=== PATIENT | male | born 1955 | race Caucasian/White ===

== ENCOUNTER → 2020-02-19 10:55 | Outpatient (BNVA) | payer SELFPAY | PROVIDERS: Visit Provider Nurse Practitioner Family | DX: M25.361 Other instability, right knee (principal) | CPT/HCPCS: 73562 ==

== ENCOUNTER → 2022-07-23 09:10 | Outpatient (BNVA) | payer MEDICARE, SELFPAY | PROVIDERS: Family Provider Family Medicine; PCP Nurse Practitioner Family; Referring Provider Nurse Practitioner Family; Visit Provider Specialist | DX: G56.02 Carpal tunnel syndrome, left upper limb (principal); G56.22 Lesion of ulnar nerve, left upper limb | CPT/HCPCS: 95908; 95910 ==

== ENCOUNTER 2022-07-26 07:38 | Day surgery (SDC) | payer MEDICARE, SELFPAY ==
[2022-07-24 09:26] VITALS: BMI 28.8
[2022-07-26 07:54] VITALS: BP 133/90; PULSE 102; RESP 18; TEMP 36.2; O2SAT 95
[2022-07-26] MEDS: sodium chloride 0.9% 1,000 ML 30 ML IV (08:02)
[2022-07-26 08:12] LABS: Glucose Point of Care 265 mg/dL (70-110)
--- NOTE | 2022-07-26 08:13 | ANES.PREANE2 ---
Pre-Anesthetic Assessment Height/Weight: Height 1.75 m Weight 88.451 kg Temp Pulse Resp BP Pulse Ox O2 Del Method 97.2 F L 102 H 18 133/90 95 07/26/22 07:54 07/26/22 07:54 07/26/22 07:54 07/26/22 07:54 07/26/22 07:54 07/26/22 07:54 Preop Diagnosis: screening Operation Date: 07/26/22 09:30 Proposed Procedures p Colonoscopy 23537,Z12.11(Not Applicable) - Manuelito Osei DO Last intake: Intake Last Liquid Date 07/25/22 Last Liquid Time 22:00 Last Solid Date 07/24/22 Last Solid Time 17:00 Exam alert and oriented x 3 Airway Submandibular: within normal limits Cervical ROM: within normal limits Mallampati: Class II Dentition: partials and full History/ROS No significant history except as noted Pulmonary None reported CV/HEM Hypertension None reported Hepatic None reported GI Gastroesophageal Reflux Disease Metabolic Diabetes Mellitus Musc/skel Lower Back Pain Neuropsych None reported Anesthetic Plan ASA status: 3 Anesthesia: Anesthesia Evaluation and MAC Risk of > 500 ml blood loss (7ml/kg in children): No Medications/Allergies Home Medications Medication Instructions Recorded Confirmed Last Taken Type aspirin 81 mg tablet,delayed 81 mg PO DAILY PRN Pain 07/02/22 07/24/22 07/23/22 History release dulaglutide 1.5 mg/0.5 mL 1 mg SUBCUT .once a week 07/02/22 07/24/22 07/23/22 History subcutaneous pen injector (Trulicity) gabapentin 100 mg capsule 100 mg PO DAILY 07/02/22 07/24/22 07/23/22 History glipizide 10 mg tablet 10 mg PO DAILY 07/02/22 07/24/22 07/23/22 History metformin 1,000 mg tablet 1,000 mg PO DAILY 07/02/22 07/24/22 07/23/22 History sitagliptin phosphate 100 mg 100 mg PO DAILY 07/02/22 07/24/22 07/23/22 History tablet (Januvia) lisinopril 5 mg tablet 5 mg PO DAILY 07/23/22 07/24/22 07/23/22 History Allergies Allergy/AdvReac Type Severity Reaction Status Date / Time No Known Allergies Allergy Verified 07/23/22 09:20 Current Medications Generic Name Dose Route Start Last Admin Trade Name Freq PRN Reason Stop Dose Admin Sodium Chloride 1,000 mls @ 30 mls/hr 07/26/22 08:00 07/26/22 08:02 Sodium Chloride 0.9% IV 07/27/22 07:59 30 mls/hr .Q24H ORIANA Administration PFSH Anesthesia Social History Smoking and tobacco status: former smoker Alcohol intake: never Adopted: No Lives independently: Yes Data Anesthesia Cardiac Studies: No Data to Display
--- NOTE | 2022-07-26 09:36 | PM.HP ---
Providers/Chief Complaint Primary Care Provider: Savanna Plunkett NP Chief Complaint: Z12.11 History of Present Illness Neftali Sadlaña is a 67 year old male who presents for a screening colonoscopy. He reports his last screening colonoscopy was 10 years ago and was within normal limits. He denies any family history of colon cancer, abdominal pain, diarrhea, constipation, hematochezia and/or melena. Review of Systems General: Reports: 10 or more systems reviewed and unremarkable except in HPI and below Medications/Allergies Home Medications Medication Instructions Recorded Confirmed Last Taken Type aspirin 81 mg tablet,delayed 81 mg PO DAILY PRN Pain 07/02/22 07/24/22 07/23/22 History release dulaglutide 1.5 mg/0.5 mL 1 mg SUBCUT .once a week 07/02/22 07/24/22 07/23/22 History subcutaneous pen injector (Trulicity) gabapentin 100 mg capsule 100 mg PO DAILY 07/02/22 07/24/22 07/23/22 History glipizide 10 mg tablet 10 mg PO DAILY 07/02/22 07/24/22 07/23/22 History metformin 1,000 mg tablet 1,000 mg PO DAILY 07/02/22 07/24/22 07/23/22 History sitagliptin phosphate 100 mg 100 mg PO DAILY 07/02/22 07/24/22 07/23/22 History tablet (Januvia) lisinopril 5 mg tablet 5 mg PO DAILY 07/23/22 07/24/22 07/23/22 History Allergies Allergy/AdvReac Type Severity Reaction Status Date / Time No Known Allergies Allergy Verified 07/23/22 09:20 PFSH Acute PFSH: Surgical History H/O partial resection of colon Social History Smoking and tobacco status: former smoker Alcohol intake: never Adopted: No Lives independently: Yes Vitals/I&O/Wt Last Vital Signs Temp 97.2 F L 07/26/22 07:54 Pulse 102 H 07/26/22 07:54 Resp 18 07/26/22 07:54 BP 133/90 07/26/22 07:54 Pulse Ox 95 07/26/22 07:54 O2 Del Method 07/26/22 07:54 Physical Exam Narrative: General : Patient is well developed , no acute distress, oriented x3 Head : Normal cephalic, a-traumatic. Ears : Pinnae and external canal are normal. Hearing is normal. Eyes : PERRLA, Sclera and injection are normal. No conjunctival discharge. Nose : Mucous membranes are without erythema. Throat : buccal mucosa is normal, gums are without significant recession or hypertrophy. Lungs : Equal chest rise bilaterally, no use of accessory muscles, trachea is midline. Cor : Rate and rhythm are normal. Abdomen : Soft, ND, NT, no g/r/m Extremities : No edema, no cyanosis or clubbing, dorsalis pedis pulses are present bilaterally, non-tender to palpation of calves. Upper extremities are normal bilaterally. Back : non-tender to palpation, no CVA tenderness. Neuro : CN II - XII intact, Upper and lower extremities have equal and full strength A&P Assessment and plan (1) Colon cancer screening: Plan Colonoscopy The risks and benefits of the procedure, including bleeding, infection, intestinal perforation requiring surgery, missed lesion were explained to the patient. The patient is understanding of the risks and wishes to proceed. Attestations Medical Necessity Statement*: Home Coding Level of Care Code Acute Code for Chg Fwd Diagnoses Colon cancer screening Z12.11
[2022-07-26 09:54] VITALS: BP 126/87; PULSE 96; RESP 16; TEMP 36.3; O2SAT 95
[2022-07-26 10:10] VITALS: BP 141/83; PULSE 88; RESP 18; O2SAT 95
--- NOTE | 2022-07-26 13:28 | ANE.PACU2 ---
Inpatient post-anesthesia follow up: Airway intact: Yes Vital signs: Temperature 97.4 F Pulse Rate 88 Respiratory Rate 18 Blood Pressure 141/83 Pulse Oximetry 95 Oxygen Delivery Me thod Room Air Oxygen Flow Rate Fraction of Inspir ed Oxygen Hydration adequate: Yes Nausea and vomiting: No Pain level: 1 Mental status: Baseline
== END 2022-07-26 10:30 | disposition home or self-care (01) ==
PROVIDERS: PCP Nurse Practitioner Family; Visit Provider Surgery
PROC: 0DJD8ZZ Inspection of Lower Intestinal Tract, Via Natural or Artificial Opening Endoscopic (ICD-10-PCS; CPT 45378; principal; 2022-07-26 09:30)
DX: Z12.11 Encounter for screening for malignant neoplasm of colon (principal); K57.30 Diverticulosis of large intestine without perforation or abscess without bleeding; Z79.82 Long term (current) use of aspirin; Z87.891 Personal history of nicotine dependence; I10 Essential (primary) hypertension; K21.9 Gastro-esophageal reflux disease without esophagitis; E11.9 Type 2 diabetes mellitus without complications
CPT/HCPCS: 36416; 82962; G0121; J2704; J7030

== ENCOUNTER → 2022-09-27 09:35 | Outpatient (BNVA) | payer MEDICARE, OTHER, SELFPAY | PROVIDERS: PCP Nurse Practitioner Family; Referring Provider Nurse Practitioner Family; Visit Provider Student in an Organized Health Care Education/Training Program | DX: G56.03 Carpal tunnel syndrome, bilateral upper limbs (principal); G56.22 Lesion of ulnar nerve, left upper limb | CPT/HCPCS: 99204 ==

== ENCOUNTER 2022-11-13 06:05 | Day surgery (SDC) | payer MEDICARE, OTHER, SELFPAY ==
[2022-11-07 14:37] VITALS: BMI 27.2
[2022-11-13] VITALS (7 sets, daily range): BP systolic 105–148; BP diastolic 66–90; PULSE 78–103; RESP 16–21; TEMP 36.1–36.4; O2SAT 92–97
[2022-11-13] MEDS: acetaminophen 1,000 MG/100 ML PIGGYBACK 400 MG IV (06:43)
[2022-11-13] MEDS: ketorolac 30 mg/mL INJ IVP (06:43)
[2022-11-13] MEDS: sodium chloride 0.9% 1,000 ML 30 ML IV (06:44)
[2022-11-13 06:45] LABS: Glucose Point of Care 141 mg/dL (70-110)
--- NOTE | 2022-11-13 07:00 | W.PM.OPSFHP ---
Same Day Surgery H&P Indication for Procedure/HPI DATE OF PROCEDURE: November 13, 2022 CHIEF COMPLAINT/INDICATIONFOR SURGICAL PROCEDURE: Tunnel syndrome, left cubital tunnel syndrome. Unchanged HPI since office visit on 09/27/2022. Patient here to proceed with surgery for left carpal tunnel and cubital tunnel release surgery. PREOP DIAGNOSIS: Left Carpal Tunnel syndrome, left cubital tunnel syndrome PLANNED PROCEDURE: Operation Date: 11/13/22 07:50 Proposed Procedures p Carpal Tunnel Release Left Hand:37579,75687,G56.0(Left) - Kip Ferrera DO s Cubital Tunnel Release left carpal tunnel release:26988,92910,G56.0(Left) - Kip Ferrera DO Medications/Allergies* Home Medications Medication Instructions Recorded Confirmed Type lisinopril 5 mg tablet 5 mg PO DAILY 02/19/20 11/07/22 History multivitamin (Multiple Vitamins 1 tab PO DAILY 02/19/20 11/07/22 History tablet) aspirin 81 mg tablet,delayed 81 mg PO DAILY PRN Pain 07/02/22 11/07/22 History release dulaglutide 1.5 mg/0.5 mL 1 mg SUBCUT .once a week 07/02/22 11/07/22 History subcutaneous pen injector (Trulicity) gabapentin 100 mg capsule 100 mg PO DAILY 07/02/22 11/07/22 History glipizide 10 mg tablet 10 mg PO DAILY 07/02/22 11/07/22 History metformin 1,000 mg tablet 1,000 mg PO DAILY 07/02/22 11/07/22 History sitagliptin phosphate 100 mg 100 mg PO DAILY 07/02/22 11/07/22 History tablet (Januvia) Allergies/Adverse Reactions Allergy/AdvReac Type Severity Reaction Status Date / Time No Known Allergies Allergy Verified 11/07/22 14:31 Current Medications: Generic Name Dose Route Start Last Admin Trade Name Freq PRN Reason Stop Dose Admin Sodium Chloride 1,000 mls @ 30 mls/hr 11/13/22 06:15 11/13/22 06:44 Sodium Chloride 0.9% IV 11/14/22 06:14 30 mls/hr .Q24H ORIANA Administration Pertinent History/Comorbid Conditions* Surgical History (Updated 07/26/22 @ 09:38 by Manuelito Osei DO) H/O partial resection of colon Social History Smoking and tobacco status: never smoked Alcohol intake: never Substance/Drug Use: never Adopted: No Lives independently: Yes Pertinent Exam Findings alert, oriented x 3, operative site marked and procedure specific exam findings Left upper extremity neg spurlings Neg tinels at shoulder bilateral pos tinel at elbow Positive elbow flex test Positive median nerve compression test pos tinels weakness and slight atrophy of the thenar muscle intrinsic weakness with minimal atrophy Recommendations Surgery/Procedure today Other Plans: Patient understands risk benefits complication alternatives with surgery at this point time he elects to proceed with a left carpal tunnel release and left cubital tunnel release surgery with possible ulnar nerve transposition. All questions answered at this time. Coding Level of Care Code Acute Code for Chg Fwd Diagnoses
[2022-11-13] MEDS: ceFAZolin 2,000 MG in sodium chloride 0.9% (plus) 50 ML 100 MG IV (08:01)
[2022-11-13] MEDS: lidocaine-epi 1% 20 mL INJ INJECTION (09:00)
--- NOTE | 2022-11-13 09:32 | PM.OP2 ---
Brief Operative Note Date of procedure: 11/13/22 Pre-op diagnosis: Left carpal tunnel syndrome, left cubital tunnel syndrome Post-op diagnosis: same Procedure Done: Left carpal tunnel release Left cubital tunnel release (ulnar nerve release at the elbow) Surgeon: Kip Ferrera Estimated blood loss (mL): 5 Complications: None Post-op Plan: Patient taken to PACU in stable condition recovering well. Pain controlled. Will receive appropriate discharge instructions as well as pain medication postoperatively. We will follow-up in the orthopedic office in 2 weeks. Patient understands and agrees with current plan. All questions answered. Condition: stable Disposition: same day Coding Level of Care Code Acute Code for Maxwellg Fwmaggie
--- NOTE | 2022-11-13 09:32 | PM.PACU ---
PACU note Narrative: Patient taken to PACU in stable condition recovering well pain controlled. Dressings are on in place clean dry and intact fingertips are warm well-perfused brisk capillary refill less than 2 seconds Exam: awake Disposition: discharged
--- NOTE | 2022-11-13 09:32 | PM.OP ---
Operative Report Date of procedure: November 13, 2022 Pre-op diagnosis: Preop Diagnosis Left Carpal Tunnel syndrome, left cubital tunnel syndrome Procedure: Procedure done: Left carpal tunnel release Left cubital tunnel tunnel release (ulnar nerve release at elbow) Surgeon: Kip Ferrera DO Estimated blood loss: 5 mL Tourniquet 20 minutes IV fluids: 800 mL Complications: None Findings: See operative report narrative Condition: stable Disposition: same day Brief History: Patient's been seen and worked up in the outpatient setting and findings consistent with preoperative diagnosis.? Patient has left carpal tunnel syndrome as well as left cubital tunnel syndrome which has been worked up in the outpatient setting has physical exam findings consistent with this as well as confirmatory nerve conduction/EMG nerve conduction study consistent with left carpal tunnel syndrome left cubital tunnel syndrome. As result through shared decision making agreed to proceed with left carpal tunnel and left cubital tunnel release we talked about treatment options as far as nonoperative and operative intervention.? Understands risk benefits complication alternatives surgical nonsurgical treatment options.? Understanding his risks he agrees to proceed with surgical intervention for left carpal tunnel release, left cubital tunnel release. Understanding these risks he agrees to proceed with surgery.? Consent obtained in office. Procedure: Patient seen evaluate in the preoperative holding area.? Consent was reviewed and signed with patient.? Correct extremity marked.? Patient seen evaluated by anesthesia department once cleared for surgery was then taken back to the operative suite placed in supine position all bony prominences well-padded patient properly secured to bed.? Left upper extremity placed onto a left armboard.? Nonsterile tourniquet applied left upper arm.? Patient then underwent anesthesia per the anesthesia department.? Patient's left upper extremity was then prepped and draped in standard orthopedic fashion.? Final timeout performed.? Patient received appropriate preoperative antibiotics. Esmarch was used exsanguinate the left upper extremity.? Tourniquet was insufflated to 250 mmHg. I started with the carpal tunnel release first.? I made a standard open carpal tunnel release starting with the distal most extent in the palm at the Starr's cardinal line and the incision line was made in line with the fourth ray and ended just distal to the wrist crease.? Sharp scalpel incision was made through skin and subcutaneous tissue I then utilizing self retainer then began to dissect with dissection scissors split longitudinally the palmar fascia.? Next I then utilizing my assistant football coach Gabrieledakailee retractors subsequently utilizing scalpel feathered through the palmaris brevis as well as through the transverse carpal ligament distally.? Once I encountered the floor of the transverse carpal ligament and entered into the carpal tunnel I then switched to dissection scissors.? Carefully released the distal extent of the transverse carpal ligament to the palmar fat.? Care was to protect the recurrent branch and not injured this during this part of the case.? Next I then placed a [place] underneath the transverse carpal ligament proximally to protect the nerve in the carpal tunnel contents.? And then I subsequently under loupe magnification utilize my dissection scissors to release the transverse carpal ligament into the antebrachial fascia under direct visualization with care to keep my scissors with a curved ulnarly away from the palmar cutaneous branch.? The transverse carpal was then completely decompressed proximally and a [place] was then placed both distally and proximally throughout the carpal tunnel and had complete decompression of the nerve.? The nerve did appear to have hourglass shape as it went through the carpal tunnel.? With significant irritation noted around the nerve.? No masses were noted within the contents of the carpal tunnel.? This completed the carpal tunnel release and then I subsequently irrigated the wound bed and placed a wet Ray-Perry into the incision for later closure. Next marked out the landmarks of the left elbow of the medial epicondyle and olecranon and made a curvilinear incision following the course of the ulnar nerve at the medial aspect of the elbow.? Sharp scalpel incision was made through skin and subcutaneous tissue.? Next I switched to Littler dissection scissors and spread in plane of the medial antebrachial cutaneous nerve branching which was protected throughout this part of the dissection.? Then I directly came down over the fascia and identified the 2 heads of the FCU fascia and split this right in the middle and subsequently identified my ulnar nerve distally.? This was then completely released distally under direct visualization and loupe magnification.? Once the nerve was then identified I then subsequently tracked this proximally and released this through Keene's ligament as well as complete decompression of the nerve proximally all the way past the intermuscular septum.? The nerve was completely released and decompressed the area of entrapment there was severely noted was at the Keene's ligament.? The nerve had noticeable scarring and irritation noted around the Keene's ligament.? This point time the nerve completely decompressed both proximally and distally.? Ulnar nerve neurolysis performed and completed both proximally and distally with dissection scissors.? I then took the elbow through range of motion and there was no instability or subluxating of the ulnar nerve.? This completed cubital tunnel release.? Next the wound bed was thoroughly irrigated.? Tourniquet was deflated.? Hemostasis was satisfactory at the cubital tunnel release surgery site. I then inspected the carpal tunnel incision and this was found to have satisfactory hemostasis and all this was maintained through bipolar electrocautery.? At this point time I sequentially closed cubital tunnel site with 3-0 Vicryl suture in a running horizontal mattress nylon stitch.? ? The carpal tunnel release surgery was then closed in standard interrupted mattress fashion.? Dressing was Xeroform 4 x 4's ABD Curlex soft roll and an Darrius wrap has a bulky soft dressing.?Patient was then awakened from anesthesia and taken to PACU in stable condition. Disposition: Patient taken to PACU in stable condition recovering well.? Patient will receive appropriate discharge instructions as well as pain medication postoperatively.? We will follow-up with me in the office in 2 weeks.? Patient understands agrees with current plan.? All questions answered.? He understands if any questions or concerns and contact the office for follow-up appointment..
--- NOTE | 2022-11-13 12:48 | ANES.PREANE2 ---
Pre-Anesthetic Assessment Height/Weight: Height 1.78 m Weight 86.183 kg Temp Pulse Resp BP Pulse Ox O2 Del Method 97 F L 78 16 121/82 94 Room Air 11/13/22 09:45 11/13/22 10:02 11/13/22 10:02 11/13/22 10:02 11/13/22 10:02 11/13/22 10:02 Preop Diagnosis: Left Carpal Tunnel syndrome, left cubital tunnel syndrome Operation Date: 11/13/22 07:50 Proposed Procedures p Carpal Tunnel Release Left Hand:41723,19113,G56.0(Left) - Kip Ferrera DO s Cubital Tunnel Release left carpal tunnel release:79054,54780,G56.0(Left) - Kip Ferrera DO Familial anesthetic complications: none Was Beta Christian taken within 24 hours: N/A Was Clonidine taken within 24 hours: N/A Last intake: Intake Last Liquid Date 11/12/22 Last Liquid Time 18:00 Last Solid Date 11/12/22 Last Solid Time 18:00 Social No alcohol and No tobacco Exam alert, oriented x 3, clear to auscultation bilaterally and regular rate & rhythm Airway Submandibular: within normal limits Cervical ROM: within normal limits Mallampati: Class II Dentition: partials CV/HEM Hypertension Metabolic Diabetes Mellitus Neuropsych Neuropathy Anesthetic Plan ASA status: 2 Anesthesia: General Medications/Allergies Home Medications Medication Instructions Recorded Confirmed Last Taken Type lisinopril 5 mg tablet 5 mg PO DAILY 02/19/20 11/07/22 11/12/22 History multivitamin (Multiple Vitamins 1 tab PO DAILY 02/19/20 11/07/22 11/12/22 History tablet) aspirin 81 mg tablet,delayed 81 mg PO DAILY PRN Pain 07/02/22 11/07/22 10/31/22 History release dulaglutide 1.5 mg/0.5 mL 1 mg SUBCUT .once a week 07/02/22 11/07/22 11/04/22 History subcutaneous pen injector (Trulicity) gabapentin 100 mg capsule 100 mg PO DAILY 07/02/22 11/07/22 11/10/22 History glipizide 10 mg tablet 10 mg PO DAILY 07/02/22 11/07/22 11/12/22 History metformin 1,000 mg tablet 1,000 mg PO DAILY 07/02/22 11/07/22 11/12/22 History sitagliptin phosphate 100 mg 100 mg PO DAILY 07/02/22 11/07/22 11/12/22 History tablet (Januvia) hydrocodone 5 mg-acetaminophen 325 1 tab PO Q6H PRN pain 7 days #28 11/13/22 Unknown Rx mg tablet tabs ondansetron 4 mg disintegrating 4 mg PO DAILY 5 days #5 tabs 11/13/22 Unknown Rx tablet Allergies Allergy/AdvReac Type Severity Reaction Status Date / Time No Known Allergies Allergy Verified 11/07/22 14:31 PFSH Anesthesia Surgical History H/O partial resection of colon Social History Smoking and tobacco status: never smoked Alcohol intake: never Substance/Drug Use: never Adopted: No Lives independently: Yes Data Anesthesia Cardiac Studies: No Data to Display
--- NOTE | 2022-11-13 17:46 | ANE.PACU2 ---
Inpatient post-anesthesia follow up: Airway intact: Yes Vital signs: Temperature 97 F Pulse Rate 78 Respiratory Rate 16 Blood Pressure 121/82 Pulse Oximetry 94 Oxygen Delivery Me thod Room Air Oxygen Flow Rate Fraction of Inspir ed Oxygen Hydration adequate: Yes Nausea and vomiting: No Pain level: 2 Mental status: Baseline
== END 2022-11-13 10:15 | disposition home or self-care (01) ==
PROVIDERS: PCP Nurse Practitioner Family; Visit Provider Student in an Organized Health Care Education/Training Program
PROC: (CPT 64721; principal; 2022-11-13 07:40)
PROC: (CPT 64718; 2022-11-13 07:40)
DX: G56.02 Carpal tunnel syndrome, left upper limb (principal); G56.22 Lesion of ulnar nerve, left upper limb; E11.40 Type 2 diabetes mellitus with diabetic neuropathy, unspecified; I10 Essential (primary) hypertension; Z79.84 Long term (current) use of oral hypoglycemic drugs
CPT/HCPCS: 64718; 64721; 36416; 82962; J0131; J0690; J1885; J2704; J2795; J3010; J7030

== ENCOUNTER → 2022-11-26 08:22 | Outpatient (BNVA) | payer MEDICARE, OTHER, SELFPAY | PROVIDERS: PCP Nurse Practitioner Family; Visit Provider Student in an Organized Health Care Education/Training Program | DX: G56.22 Lesion of ulnar nerve, left upper limb (principal); G56.02 Carpal tunnel syndrome, left upper limb | CPT/HCPCS: 99024 ==

== ENCOUNTER → 2022-11-30 10:23 | Outpatient (BNVA) | payer MEDICARE, OTHER, SELFPAY | PROVIDERS: PCP Nurse Practitioner Family; Visit Provider Nurse Practitioner Family | DX: G56.22 Lesion of ulnar nerve, left upper limb (principal); G56.02 Carpal tunnel syndrome, left upper limb; L03.114 Cellulitis of left upper limb | CPT/HCPCS: 99213 ==

== ENCOUNTER 2024-03-20 16:15 | Outpatient (CLI) | payer MEDICARE, SELFPAY ==
--- NOTE | 2024-03-20 16:31 | USCV_ITS ---
Neftali Saldaña Age: 68 Gender: M : 1955 Exam Date: 03/20/2024 16:42 Ordering Phys: Savanna Plunkett NP Technologist: CT Exam Location: [facility] [place] Indication: HISTORY: Diameter (cm) AP x Transverse x Length Velocity (cm/s) Waveform Prox Aorta: 1.50 x 1.60 x 61.80 Mid Aorta: 1.90 x 1.80 x 55.90 Distal Aorta: 1.50 x 1.60 x 54.00 Right Iliac Prox: 1.30 x 1.20 x 77.80 Left Iliac Prox: 1.00 x 1.00 x 87.20 Stent Prox Landing x x Aneurysmal Sac Max x x Lt Lat Sac Dim Rt Lat Sac Dim Stent Dist Landing x x Right Iliac Stent x x Left Iliac Stent x x Right Renal Art Left Renal Art FINDINGS: CONCLUSIONS No evidence of AAA. Mild atheromatous plaque Normal common iliac arteries William Rodríguez MD (Electronically Signed) Final Date: 22 March 2024 18:49 S
== END 2024-03-20 16:16 | disposition home or self-care (01) ==
LOC: RAD 16:16
PROVIDERS: PCP Nurse Practitioner Family; Visit Provider Nurse Practitioner Family
DX: I10 Essential (primary) hypertension (principal)
CPT/HCPCS: 76706

== ENCOUNTER 2024-05-08 09:51 | Emergency (ER) | payer MEDICARE, SELFPAY ==
[2024-05-08 10:23] VITALS: BP 163/96; PULSE 84; RESP 17; TEMP 36.5; O2SAT 96; BMI 27.2
--- NOTE | 2024-05-08 10:31 | XR_ITS ---
WS: [id number] XR ribs LT mn 3V w [id number] [id number] REASON FOR EXAM: trauma FINDINGS: No acute rib fractures identified. No acute left lung or pleural abnormality is seen. XR/XR ribs LT mn 3V w CXR1V [id number] IMPRESSION: No acute abnormality.
--- NOTE | 2024-05-08 10:31 | XR_ITS ---
WS: [id number] XR shoulder LT min 2V* [id number] REASON FOR EXAM: trauma FINDINGS: No acute fracture of the clavicle, scapula, or humerus. Disruption of the acromioclavicular articulation compatible with grade 2 AC separation. 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 XR/XR shoulder LT min 2V* [id number] IMPRESSION: AC separation as above.
--- NOTE | 2024-05-08 12:02 | W.ED.FALL ---
HPI - Fall General: Chief Complaint: Fall Stated Complaint: fall (shoulder/rib inj) Time Seen by Provider: 05/08/24 11:57 Source: patient Mode of arrival: ambulatory Limitations: no limitations History of Present Illness: 69-year-old male states that he had fell off an [address] trailer on Saturday states he landed on his left shoulder numbness and left shoulder pain along with left chest wall pain and some left upper back pain after the fall. States most pain is at his shoulder especially when he tries to move it he denies loss conscious denies any headache denies any neck pain Associated symptoms-after fall: Reports chest pain; Denies abdominal pain, headache(s) or neck pain Related Data Home Medications Medication Instructions Recorded Confirmed lisinopril 5 mg tablet 5 mg PO DAILY 02/19/20 11/30/22 multivitamin (Multiple Vitamins 1 tab PO DAILY 02/19/20 11/30/22 tablet) aspirin 81 mg tablet,delayed 81 mg PO DAILY PRN Pain 07/02/22 11/30/22 release dulaglutide 1.5 mg/0.5 mL 1 mg SUBCUT .once a week 07/02/22 11/30/22 subcutaneous pen injector (Trulicity) gabapentin 100 mg capsule 100 mg PO DAILY 07/02/22 11/30/22 glipizide 10 mg tablet 10 mg PO DAILY 07/02/22 11/30/22 metformin 1,000 mg tablet 1,000 mg PO DAILY 07/02/22 11/30/22 sitagliptin phosphate 100 mg 100 mg PO DAILY 07/02/22 11/30/22 tablet (Januvia) Previous Rx's Medication Instructions Recorded sulfamethoxazole 800 1 tab PO BID 10 days #20 tabs 11/30/22 mg-trimethoprim 160 mg tablet (Bactrim DS) methocarbamol 750 mg tablet 750 mg PO Q6H PRN spasms #20 tabs 05/08/24 naproxen 500 mg tablet (Naprosyn) 500 mg PO BID PRN pain #20 tabs 05/08/24 Allergies Allergy/AdvReac Type Severity Reaction Status Date / Time No Known Allergies Allergy Verified 11/30/22 10:25 Review of Systems Const: Denies: fever(s), chills, body aches or change in appetite ENMT: Denies: throat pain or dental pain Card: Reports: chest pain Resp: Denies: dyspnea GI: Denies: abdominal pain, nausea, vomiting or diarrhea Musc: Reports: back pain and extremity pain; Denies: neck pain Skin/Breast: Denies: rash Neuro: Denies: headache(s) PFSH ED PFSH: Surgical History H/O partial resection of colon Social History Smoking and tobacco/nicotine status: never used tobacco/nicotine Alcohol intake: never Substance/Drug Use: never Adopted: No Lives independently: Yes Physical Exam Const: COMMON NORMALS: no acute distress, patient oriented x3 and healthy appearing HENMT: COMMON NORMALS: normocephalic and atraumatic HEAD & SCALP: normocephalic and atraumatic Eye: COMMON NORMALS: conjunctivae normal CONJUNCTIVA: Yes conjunctivae normal Neck/C-Spine: COMMON NORMALS: full ROM and supple Chest: COMMONS NORMALS: normal inspection of the chest and normal palpation of entire chest wall Resp: COMMON NORMALS: normal respiratory effort, No retractions, No use of accessory muscles and clear to auscultation bilaterally AUSCULTATION: clear to auscultation bilaterally Cardio: COMMON NORMALS: regular rate RATE: regular rate Back/Pelvis: OTHER: Tenderness over left thoracic spine no midline tenderness Extremity: COMMON NORMALS: full ROM NARRATIVE EXTREMITY EXAM: Obvious AC joint separation on exam does have pain with range of motion distal pulses sensation intact Neuro: COMMON NORMALS: patient oriented x3, moves all extremities and no focal motor deficits Psych: COMMON NORMALS: mental status grossly normal, Normal thought process present and cooperative THOUGHT PROCESS: Normal thought process present Skin: COMMON NORMALS: no rashes or lesions noted and no wounds GENERAL SKIN EXAM: no rashes or lesions noted Course Vital Signs: Vital signs: Vital Signs Temperature 97.7 F 05/08/24 10:23 Pulse Rate 84 05/08/24 10:23 Respiratory Rate 17 05/08/24 10:23 Blood Pressure 163/96 05/08/24 10:23 Pulse Oximetry 96 05/08/24 10:23 Oxygen Delivery Me thod Room Air 05/08/24 10:23 MDM - Fall Medical Decision Making Patient presents here with a fall he does have AC joint separation on on x-ray we will place him in a sling he is to follow-up orthopedics he has a thoracic muscle strain as well he has no midline tenderness no signs of spinous injury no headache or loss conscious he stable for discharge she is return if worsening Medical Records I reviewed the patient's medical records. Lab Data Radiology Impressions Ribs X-Ray 05/08/24 10:31 IMPRESSION: No acute abnormality. Shoulder X-Ray 05/08/24 10:31 IMPRESSION: AC separation as above. All radiology interpretation(s) finalized by discharge Discharge Plan Discharge Patient Disposition: Home Clinical Impression: Fall, Strain of thoracic spine Acromioclavicular joint separation Qualifiers: Encounter type: initial encounter Laterality: left Qualified Code(s): S43.102A - Unspecified dislocation of left acromioclavicular joint, initial encounter Condition: Stable Prescriptions: New methocarbamol 750 mg tablet 750 mg PO Q6H PRN (Reason: spasms) Qty: 20 0RF naproxen [Naprosyn] 500 mg tablet 500 mg PO BID PRN (Reason: pain) Qty: 20 0RF No Action lisinopril 5 mg tablet 5 mg PO DAILY multivitamin [Multiple Vitamins] Tablet 1 tab PO DAILY gabapentin 100 mg capsule 100 mg PO DAILY glipizide 10 mg tablet 10 mg PO DAILY Januvia 100 mg tablet 100 mg PO DAILY metformin 1,000 mg tablet 1,000 mg PO DAILY Trulicity 1.5 mg/0.5 mL pen injector 1 mg SUBCUT .once a week aspirin 81 mg tablet,delayed release (DR/EC) 81 mg PO DAILY PRN (Reason: Pain) sulfamethoxazole-trimethoprim [Bactrim DS] 800-160 mg tablet 1 tab PO BID 10 Days Qty: 20 0RF Discharge Orders: Discharge ED (Routine); Ordered 05/08/24 Ordered By: Marisa Boykin Referrals: Savanna Plunkett NP [Primary Care Provider] - Discharge Diet: Advance as tolerated Discharge Activity: Resume usual activity Patient Instructions: Acromioclavicular Separation (ED), Thoracic Back Strain (ED) Coding Level of Care Code ED Signal Maintainer Helper for Levar Terrazas
[2024-05-08 12:07] VITALS: BP 160/92; PULSE 79; O2SAT 97
--- NOTE | 2024-05-11 07:22 | DCPLANNER ---
messaged ortho for er f/u
== END 2024-05-08 12:08 | disposition home or self-care (01) ==
PROVIDERS: Emergency Provider Emergency Medicine; PCP Nurse Practitioner Family
DX: S29.012A Strain of muscle and tendon of back wall of thorax, initial encounter (principal); S43.102A Unspecified dislocation of left acromioclavicular joint, initial encounter; W19.XXXA Unspecified fall, initial encounter
CPT/HCPCS: 71101; 73030; 99284

== ENCOUNTER → 2024-05-13 09:41 | Outpatient (BNVA) | payer MEDICARE, SELFPAY | PROVIDERS: PCP Nurse Practitioner Family; Visit Provider Specialist | DX: S43.102A Unspecified dislocation of left acromioclavicular joint, initial encounter (principal); W17.89XA Other fall from one level to another, initial encounter | CPT/HCPCS: 73030; 99204 ==

== ENCOUNTER 2024-05-14 09:05 | Outpatient (CLI) | payer MEDICARE, SELFPAY ==
--- NOTE | 2024-05-14 09:12 | XRR_ITS ---
PROCEDURE INFORMATION: Exam: XR Thoracic Spine Exam date and time: 05/14/2024 9:24 AM Age: 69 years old Clinical indication: Injury or trauma; Fall; Blunt trauma (contusions or hematomas); Injury date: 10 days ago; Injury details: Fell off trailer x10 days, pain in mid back and difficulty breathing; Additional info: Fall from dock/mid back pain on L side/shoulder injury TECHNIQUE: Imaging protocol: Radiologic exam of the thoracic spine. Views: 3 views. COMPARISON: CR XR ribs LT mn 3V w CXR1V [id number] 05/08/2024 11:22 AM FINDINGS: Bones/joints: Slight midthoracic disc space narrowing and spurring.. No acute fracture. Normal alignment. Soft tissues: Unremarkable. XR/XR thoracic spine 3V* [id number] IMPRESSION: No acute findings.
== END 2024-05-14 09:06 | disposition home or self-care (01) ==
PROVIDERS: PCP Nurse Practitioner Family; Visit Provider Nurse Practitioner Family
DX: M54.6 Pain in thoracic spine (principal); W17.4XXA Fall from dock, initial encounter
CPT/HCPCS: 72072